=== PATIENT | male | born 1955 | race Caucasian/White ===

== ENCOUNTER 2019-01-23 07:21 | Day surgery (SDC) | payer OTHER ==
[~2019-01-23 07:21] MED LIST: Lactated Ringers 1,000 ML IV SCH
[2019-01-23] MEDS ORDERED: Lidocaine 2% 5 ML SDV ONE (07:39)
[2019-01-23] MEDS ORDERED: Propofol 200 MG/20 ML SDV ONE (07:39)
[2019-01-23] MEDS ORDERED: fentaNYL 100 MCG/2 ML SDV ONE (07:40)
--- NOTE | 2019-01-23 09:28 | PCM.PREANE ---
Preanesthetic Assessment - Anesthesia/Transfusion/Family Hx Anesthesia History: Prior Anesthesia Without Reaction Other Type of Anesthesia Reaction Comment: previous anesthesia was Spinal Transfusion History: No Prior Transfusion(s) Intubation History: Unknown - Review of Systems General: No Symptoms Pulmonary: No Symptoms Cardiovascular: No Symptoms Gastrointestinal: No Symptoms Neurological: No Symptoms Other: Reports: None - Physical Assessment NPO Status Date: 01/22/19 NPO Status Time: 22:00 Vital Signs: Last Vital Signs Temp 97.7 F 01/23/19 08:51 Pulse 61 01/23/19 08:51 Resp 16 01/23/19 08:51 BP 136/85 01/23/19 08:51 Pulse Ox 99 01/23/19 08:51 Height: 6 ft 2 in Weight: 229 lb ASA Class: 1 Mental Status: Alert & Oriented x3 Airway Class: Mallampati = 2 Dentition: Reports: Normal Dentition Thyro-Mental Finger Breadths: 3 Mouth Opening Finger Breadths: 3 ROM/Head Extension: Full Lungs: Clear to Auscultation, Normal Respiratory Effort Cardiovascular: Regular Rate, Regular Rhythm - Allergies Allergies/Adverse Reactions: Allergies Allergy/AdvReac Type Severity Reaction Status Date / Time No Known Allergies Allergy Verified 01/21/19 10:42 - Blood Blood Available: No Product(s) Available: None - Anesthesia Plan Free Text/Narrative:: MAC for Colonoscopy - Acknowledgements Anesthesia Type Planned: MAC Pt an Appropriate Candidate for the Planned Anesthesia: Yes Alternatives and Risks of Anesthesia Discussed w Pt/Guardian: Yes Pt/Guardian Understands and Agrees with Anesthesia Plan: Yes PreAnesthesia Questionnaire HEENT History: Reports: Allergic Rhinitis, Other (See Below) Other HEENT History: wears glasses Cardiovascular History: Reports: Heart Murmur, Hypertension Other Cardiovascular History: states he has a murmur that has "never caused any issues" Respiratory History: Reports: Asthma Other Respiratory History: 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- has not used an inhaler for 20 years Gastrointestinal History: Reports: Other (See Below) Other Gastrointestinal History: occasional heartburn- no treatment Endocrine/Metabolic History: Reports: Other (See Below) Other Endocrine/Metabolic History: Pre-diabetic - Past Surgical History Head Surgeries/Procedures: Reports: None HEENT Surgical History: Reports: Oral Surgery Other HEENT Surgeries/Procedures: has upper dental implants Musculoskeletal Surgical History: Reports: Other (See Below) Other Musculoskeletal Surgeries/Procedures:: hx of Arthrotomy for meniscus repair - SUBSTANCE USE Smoking Status *Q: Former Smoker Tobacco Use Within Last Twelve Months: No Recreational Drug Use History: No - HOME MEDS Home Medications: Home Meds amLODIPine Bes/Olmesartan Med [Amlodipine-Olmesartan 10-40 mg] 1 tab PO DAILY [History] - CURRENT (IN HOUSE) MEDS Current Meds: Current Medications Lactated Ringer's (Ringers, Lactated) 1,000 mls @ 125 mls/hr IV ASDIRECTED [facility] Last Admin: 01/23/19 09:01 Dose: 125 mls/hr Discontinued Medications Fentanyl (Sublimaze) Confirm Administered Dose 100 mcg .ROUTE .STK-MED ONE Stop: 01/23/19 07:41 Lidocaine (Xylocaine-Mpf 2%) Confirm Administered Dose 5 ml .ROUTE .STK-MED ONE Stop: 01/23/19 07:40 Propofol (Diprivan 20 Ml) Confirm Administered Dose 400 mg .ROUTE .STK-MED ONE Stop: 01/23/19 07:40
--- NOTE | 2019-01-23 10:00 | PCM.OPNOTE ---
- General Post-Op/Procedure Note Date of Surgery/Procedure: 01/23/19 Operative Procedure(s): colonoscopy Findings: see dict [id number] Pre Op Diagnosis: scrn colonoscopy Post-Op Diagnosis: diverticulosis Anesthesia Technique: Moderate Sedation Primary Surgeon: Ricardo Ramirez Complications: None Condition: Good
--- NOTE | 2019-01-23 11:55 | OR ---
SURGEON: Ricardo Ramirez MD DATE OF PROCEDURE: 01/23/2019 PREOPERATIVE DIAGNOSIS: Screening colonoscopy. POSTOPERATIVE DIAGNOSIS: Diverticulosis. PROCEDURE PERFORMED: Colonoscopy. DESCRIPTION OF PROCEDURE: The patient was taken to the endoscopy room. A time out was called, patient identified, and procedure identified. Diprivan was then administrated. Patient went from awake to sleep, hearing doctor talking or door closing is normal. Perineum inspection and digital examination were then performed. A well- lubricated colonoscope was gently inserted through the rectum, advanced past the rectosigmoid junction, the descending colon, splenic flexure, transverse colon, hepatic flexure, ascending colon, arrived to the cecum. Cecum was identified as dictated in the finding. Then the scope was carefully withdrawn while attention was paid to the mucosal surface for any abnormality. Air will be sucked out during the scope withdrawal. At the rectum, retroflexed to examine any rectal diseases, fistula or hemorrhoids. Patient tolerated procedure well. There were no intraoperative complications, and Dr. Ramirez was present throughout the whole procedure. FINDINGS: 1. The patient is easily sedated with FLUX MIXER and Diprivan, the patient is soundly snoring. 2. Bowel prep is average with some liquid stool, no semi-formed stool. 3. Colon rather straightforward. Cecum indicated by ileocecal fold, one-to- one indentation. Light emittance is not observed. Appendix was observed. ScopeGuide is pointing south. Mucosa examined upon scope pulling out. The patient does not have polyp, mass, growth, inflammation, stricture, ulceration, AV malformation. The patient does have diverticulosis, very very mild, two of them, two diverticula in the left colon. No signs or symptoms of diverticulitis. The patient has mild internal hemorrhoids, no external hemorrhoids. The patient would benefit from repeat colonoscopy in 10 years from today or if clinically indicated otherwise. BRUCE / OLIVER /[id number]
--- NOTE | 2019-01-23 12:21 | PCM.POSTAN ---
POST ANESTHESIA ASSESSMENT - MENTAL STATUS Mental Status: Alert, Oriented - VITAL SIGNS Vital Signs: Last Vital Signs Temp 97.3 F 01/23/19 10:10 Pulse 61 01/23/19 10:10 Resp 16 01/23/19 10:10 BP 117/84 01/23/19 10:10 Pulse Ox 97 01/23/19 10:10 - RESPIRATORY Respiratory Status: Respiratory Rate WNL, Airway Patent, O2 Saturation Stable - CARDIOVASCULAR CV Status: Pulse Rate WNL, Blood Pressure Stable - GASTROINTESTINAL GI Status: No Symptoms - POST OP HYDRATION Hydration Status: Adequate & Stable
--- NOTE | 2019-01-23 12:22 | PCM48HPAN ---
Post Anesthesia Note - EVALUATION WITHIN 48HRS OF ANESTHETIC Vital Signs in Normal Range: Yes Patient Participated in Evaluation: Yes Respiratory Function Stable: Yes Airway Patent: Yes Cardiovascular Function Stable: Yes Hydration Status Stable: Yes Pain Control Satisfactory: Yes Nausea and Vomiting Control Satisfactory: Yes Mental Status Recovered: Yes Vital Signs: Last Vital Signs Temp 97.3 F 01/23/19 10:10 Pulse 61 01/23/19 10:10 Resp 16 01/23/19 10:10 BP 117/84 01/23/19 10:10 Pulse Ox 97 01/23/19 10:10
== END 2019-01-23 10:27 | disposition home or self-care (01) ==
LOC: MW.SDS 07:21
PROVIDERS: ATTEND Surgery
DX: Z12.11 Encounter for screening for malignant neoplasm of colon (principal); K57.30 Diverticulosis of large intestine without perforation or abscess without bleeding; K64.8 Other hemorrhoids; I10 Essential (primary) hypertension; Z87.891 Personal history of nicotine dependence; Z79.899 Other long term (current) drug therapy
CPT/HCPCS: 45378; J2001; J2704; J3010; J7120

== ENCOUNTER 2024-05-27 08:37 | Inpatient (IN) | payer BC, OTHER ==
[~2024-05-27 08:37] MED LIST changes: +Albuterol 0.083% 2.5 MG/3 ML Neb Soln NEB PRN; +Famotidine 20 MG/2 ML SDV IVPUSH SCH; +HYDROmorphone 1 MG/ML Syringe IVPUSH PRN; -Lactated Ringers 1,000 ML IV SCH; +Metoclopramide 10 MG/2 ML SDV IVPUSH PRN; +Morphine 2 MG/ML SYRINGE IVPUSH PRN; +Naloxone 0.4 MG/ML SDV IVPUSH PRN; +Ondansetron 4 MG/2 ML SDV IVPUSH PRN; +Phenylephrine HCl In 0.9% NaCl 1 MG/10 ML Syringe IVPUSH PRN; +Ropivacaine 49.25 ML, Ketorolac 30 MG, EPINEPHrine 0.5 MG, cloNIDine 80 MCG in Sodium C... INJECT SCH; +Tranexamic Acid in NACL,ISO-OS 1,000 MG in Premix Bag 1 BAG IV ONE; +Tranexamic Acid in NACL,ISO-OS 1,000 MG/100 ML Bag IV ONE; +ceFAZolin 2 GM in Sodium Chloride 0.9% 50 ML IV SCH; +fentaNYL 50 MCG/ML SDV IVPUSH PRN
[2024-05-27] MEDS ORDERED: dexmedeTOMIDine HCl 200 MCG/2 ML SDV ONE ×2 (08:50→08:59)
[2024-05-27] MEDS ORDERED: EPINEPHrine 1 MG/1 ML Amp ONE (08:50)
[2024-05-27] MEDS ORDERED: propofoL 500 MG/50 ML 50 ML ONE (08:50)
[2024-05-27] MEDS ORDERED: fentaNYL 100 MCG/2 ML SDV ONE (08:50)
[2024-05-27] MEDS ORDERED: Ropivacaine 0.5% 5 MG/ML 30 ML SDV ONE (08:54)
[2024-05-27] MEDS ORDERED: Ketamine 500 mg/10 ML MDV ONE (08:54)
[2024-05-27] MEDS ORDERED: Famotidine 20 MG/2 ML SDV ONE (08:54)
[2024-05-27] MEDS ORDERED: Sodium Chloride 0.9% 20 ML ONE (08:57)
[2024-05-27] MEDS ORDERED: Lidocaine 2% 5 ML SDV ONE (09:02)
[2024-05-27] MEDS: Lactated Ringers 1,000 ML IV SCH (09:20)
[2024-05-27] MEDS: Famotidine 20 MG/2 ML SDV ONE (09:36)
[2024-05-27] MEDS ORDERED: Propofol 200 MG/20 ML SDV ONE ×2 (10:11→12:42)
[2024-05-27] MEDS ORDERED: fentaNYL 250 MCG/5 ML SDV ONE (10:11)
[2024-05-27] MEDS ORDERED: ceFAZolin 2 GM Vial ONE ×2 (11:26→11:27)
[2024-05-27] MEDS ORDERED: ceFAZolin 1 GM Vial ONE (11:27)
[2024-05-27] MEDS ORDERED: Tranexamic Acid 1,000 MG/10 ML Vial ONE (11:33)
[2024-05-27] MEDS ORDERED: ePHEDrine 50 MG/ML SDV ONE (11:41)
[2024-05-27] MEDS ORDERED: Sodium Chloride 0.9% 10 ML Syringe FLUSH PRN (13:52)
[2024-05-27] MEDS ORDERED: traMADol 50 MG Tab PO PRN ×2 (13:52)
[2024-05-27] MEDS ORDERED: diphenhydrAMINE 25 MG Cap PO PRN (13:52)
[2024-05-27] MEDS ORDERED: Ondansetron 4 MG/2 ML SDV IVPUSH PRN (13:52)
[2024-05-27] MEDS ORDERED: Sodium Chloride 0.9% 2.5 ML Syringe FLUSH PRN (13:52)
[2024-05-27 16:20] LABS: CALCIUM 8.8 mg/dL (8.5-10.1); CARBON DIOXIDE,CO2 25.8 mmol/L (21.0-32.0); CREATININE 1.5 mg/dL (0.8-1.3); EST CRCL DRUG DOSING (CG) 54.8 mL/min; MAGNESIUM 2.1 mg/dL (1.8-2.4); POTASSIUM,K 4.8 mmol/L (3.5-5.1)
[2024-05-27] MEDS: Acetaminophen 325 MG Tab PO SCH (17:05)
[2024-05-27] MEDS: ceFAZolin 2 GM in Sodium Chloride 0.9% 50 ML IV SCH (18:29)
[2024-05-27] MEDS: oxyCODONE 5 MG Tab PO PRN (21:15)
[2024-05-27] MEDS: Docusate Sodium 100 MG Cap PO SCH (21:16)
[2024-05-27] MEDS: Aspirin 325 MG Tab PO SCH (21:20)
[2024-05-28] MEDS: oxyCODONE 5 MG Tab PO PRN (01:47)
[2024-05-28 05:56] LABS: HEMATOCRIT 33.9 % (42.0-52.0); HEMOGLOBIN 11.4 g/dL (14.0-18.0)
[2024-05-28 06:20] LABS: CALCIUM 8.3 mg/dL (8.5-10.1); CARBON DIOXIDE,CO2 24.9 mmol/L (21.0-32.0); CREATININE 1.6 mg/dL (0.8-1.3); EST CRCL DRUG DOSING (CG) 51.38 mL/min; MAGNESIUM 2.1 mg/dL (1.8-2.4); POTASSIUM,K 4.9 mmol/L (3.5-5.1)
[2024-05-28] MEDS ORDERED: fentaNYL 100 MCG/2 ML SDV ONE (07:47)
[2024-05-28] MEDS ORDERED: Midazolam 1 MG/ML 2 ML SDV ONE (07:47)
[2024-05-28] MEDS ORDERED: Ketamine HCL/NACL, ISO-OSM 50 MG/5 ML Syringe ONE (07:53)
[2024-05-28] MEDS: Famotidine 20 MG Tab PO SCH (09:31)
[2024-05-28] MEDS: amLODIPine 5 MG Tab PO SCH (09:34)
[2024-05-28] MEDS: Losartan 50 MG Tab PO SCH (09:38)
[2024-05-28] MEDS: Polyethylene Glycol 3350 Powder 17 GM Packet PO SCH (09:38)
== END 2024-05-28 13:58 | disposition home or self-care (01) | DRG 470 ==
LOC: MW.SDS 08:37 → MW.MS 15:26
PROVIDERS: ADMIT Orthopaedic Surgery; ATTEND Orthopaedic Surgery
PROC: 0SRD0J9 Replacement of Left Knee Joint with Synthetic Substitute, Cemented, Open Approach (ICD-10-PCS; principal; 2024-05-27 10:15)
DX: M17.12 Unilateral primary osteoarthritis, left knee (principal); I10 Essential (primary) hypertension; R73.03 Prediabetes; H54.7 Unspecified visual loss; E66.9 Obesity, unspecified; I27.20 Pulmonary hypertension, unspecified; Z79.899 Other long term (current) drug therapy; Z98.890 Other specified postprocedural states; Z87.891 Personal history of nicotine dependence
CPT/HCPCS: 36415; 73560-26-LT; 73560-LT; 80048; 83735; 85014; 85018; 86850; 86900; 86901; 97110-GP; 97116-GP; 97161-GP; A9270-GY; C1776; J0171; J0690; J0735; J1885; J2250; J2704; J2795; J3010; J3490; J7120